=== PATIENT | female | born 1980 | race Caucasian/White ===

== ENCOUNTER 2019-01-11 17:17 | Emergency (ER) | payer BC ==
[~2019-01-11] VITALS: Ht 172.7 cm; Wt 90.0 kg
[~2019-01-11 17:17] MED LIST: DIVA500T9 PO; ESTR1PAT80 TOP; LURA60TA2 PO; SERT25TA5 PO
[2019-01-11] MEDS ORDERED: LORazepam 2 mg/ml vial IM ONE (17:45)
[2019-01-11] MEDS ORDERED: diphenhydrAMINE 50 mg/ml inj IM ONE (17:45)
[2019-01-11] MEDS ORDERED: haloperidol lactate 5mg/ml inj IM ONE (17:45)
--- NOTE | 2019-01-11 17:58 | NUR ---
obtained verbal order for hard restraint.patient uncooperative and combative.Unable to redirect.
[2019-01-11 18:55] LABS: BASOPHILS % (AUTO) 0.3 % (0-1); EOSINOPHILS % (AUTO) 0.2 % (0-6); HEMATOCRIT 41.6 % (35.0-45.0); HEMOGLOBIN 14.4 g/dl (12.0-16.0); LYMPHOCYTES % (AUTO) 11.2 % (21-51); MEAN CORPUSCULAR HEMOGLOBIN 30.4 PG (27.0-31.0); MEAN CORPUSCULAR HGB CONC 34.6 g/dL (33.0-36.5); MEAN CORPUSCULAR VOLUME 87.7 FL (78-98); MEAN PLATELET VOLUME 8.8 FL (7.4-10.4); MONOCYTES # (AUTO) 0.4 X10'3 (0-0.9); MONOCYTES % (AUTO) 4.1 % (2-12); NEUTROPHILS # (AUTO) 7.8 X10'3 (1.8-7.7); NEUTROPHILS % (AUTO) 84.2 % (42-75); PLATELET COUNT 161 X10'3 (140-440); RED BLOOD COUNT 4.75 X10'6 (4.20-5.60); RED CELL DISTRIBUTION WIDTH 14.7 % (11.5-14.5); WHITE BLOOD COUNT 9.3 X10'3 (4.5-11.0)
[2019-01-11 19:08] LABS: ALANINE AMINOTRANSFERASE 18 U/L (12-78); ALBUMIN 3.6 G/DL (3.4-5.0); ALBUMIN/GLOBULIN RATIO 1.3 (1.1-1.5); ALKALINE PHOSPHATASE 68 IU/L (46-116); ANION GAP 13 (8-16); ASPARTATE AMINO TRANSFERASE 16 U/L (10-37); BILIRUBIN,TOTAL 1.1 MG/DL (0.1-1.0); BLOOD UREA NITROGEN 13 MG/DL (7-18); BUN/CREATININE RATIO 13.5 (6.6-38.0); CALCIUM 8.5 MG/DL (8.5-10.1); CHLORIDE 103 MMOL/L (99-107); CREATININE 0.96 MG/DL (0.40-0.90); GLUCOSE 209 MG/DL (70-104); SODIUM 137 MMOL/L (135-145); TOTAL CARBON DIOXIDE 21.1 MMOL/L (24-32); TOTAL PROTEIN 6.3 G/DL (6.4-8.2); eGFR 64 ML/MIN
[2019-01-11 19:12] LABS: ETHANOL < 0.010 GM/DL (0.0-0.010); POTASSIUM 2.7 MMOL/L (3.5-5.1)
[2019-01-11] MEDS ORDERED: potassium Cl 20 mEq SR tablet PO PRN ×2 (19:15)
[2019-01-11 20:04] LABS: CLARITY,URINE CLEAR (Clear); COLOR,URINE YELLOW (Yellow); GLUCOSE, URINE NEGATIVE (Neg); KETONES,URINE 15 mg/dl (Neg); LEUKOCYTE ESTERASE ,URINE NEGATIVE (Neg); NITRITES, URINE NEGATIVE (Neg); OCCULT BLOOD,URINE NEGATIVE (Neg); PROTEIN,URINE NEGATIVE (Neg); URINE HCG NEGATIVE (NEG); UROBILINOGEN,URINE 0.2 E.U/dL (0.2-1.0)
[2019-01-11 20:06] LABS: UA COLLECTION TYPE CLN CATCH MIDSTREAM
[2019-01-11 20:21] LABS: URINE AMPHETAMINE SCREEN NEGATIVE (Neg); URINE BARBITUATE SCREEN NEGATIVE (Neg); URINE BENZODIAZEPINES SCREEN NEGATIVE (Neg); URINE CANNABINOID SCREEN NEGATIVE (Neg); URINE COCAINE SCREEN NEGATIVE (Neg); URINE METHADONE SCREEN NEGATIVE (Neg); URINE OPIATE SCREEN NEGATIVE (Neg); URINE PHENCYCLIDINE SCREEN NEGATIVE (Neg)
--- NOTE | 2019-01-11 21:21 | NUR ---
Pt. resting quietly, on monitor Pt. sinus tach 110 - 130, no ectopy. Dr. Victoria aware.
[2019-01-11] MEDS ORDERED: PROG25PO TOP (22:15)
[2019-01-11 22:50] VITALS: BP 128/78
[2019-01-12] MEDS ORDERED: K and/or MAG REPLACEMENT MC SCH (08:00)
== END 2019-01-11 22:51 | disposition home or self-care (01) ==
LOC: ER 17:19
DX: F29 Unspecified psychosis not due to a substance or known physiological condition (principal); E87.6 Hypokalemia; E78.00 Pure hypercholesterolemia, unspecified; R45.1 Restlessness and agitation; F41.9 Anxiety disorder, unspecified; Z79.899 Other long term (current) drug therapy; Z98.890 Other specified postprocedural states
CPT/HCPCS: 36415; 80053; 80305; 80320; 81003; 81025; 85025; 96372; 99284; J1200; J1630; J2060

== ENCOUNTER 2019-01-12 14:27 | Emergency (ER) | payer BC ==
[~2019-01-12] VITALS: Ht 162.6 cm; Wt 80.0 kg
[~2019-01-12 14:27] MED LIST changes: -DIVA500T9 PO; -ESTR1PAT80 TOP; -LURA60TA2 PO; +PROG25PO TOP; -SERT25TA5 PO
[2019-01-12] MEDS ORDERED: haloperidol lactate 5mg/ml inj IM ONE (15:00)
[2019-01-12] MEDS ORDERED: diphenhydrAMINE 50 mg/ml inj IM ONE (15:00)
[2019-01-12] MEDS ORDERED: LORazepam 2 mg/ml vial IM ONE (15:00)
--- NOTE | 2019-01-12 15:20 | NUR ---
Per report from intake patient has been off her medications for schizophrenia for 6 months and is now experiencing confusion and is danger to herself and to others in her family. She was seen and treated yesterday requiring physical and chemical restraints, was ultimately discharged home. Family has now brought her back for further treatment. Pt presents as delusional and unable to care for herself. Also has a young son. is at bedside and was able to convince her to take im injections as ordered. Placed on 1798 by to be evaluated for inpatient treatment. Labs drawn. States has been to [facility] in the past and was helpful. Addendum: 01/12/19 at 1553 by FSTURR *pt has Bipolar disorder per painter and grader cork and chart documentation/family report not schizophrenia.
[2019-01-12 15:27] LABS: BASOPHILS % (AUTO) 0.2 % (0-1); EOSINOPHILS % (AUTO) 0.1 % (0-6); HEMATOCRIT 43.2 % (35.0-45.0); HEMOGLOBIN 14.9 g/dl (12.0-16.0); LYMPHOCYTES # (AUTO) 1.1 X10'3 (1.1-4.8); MEAN CORPUSCULAR HEMOGLOBIN 29.8 PG (27.0-31.0); MEAN CORPUSCULAR HGB CONC 34.4 g/dL (33.0-36.5); MEAN CORPUSCULAR VOLUME 86.7 FL (78-98); MEAN PLATELET VOLUME 8.8 FL (7.4-10.4); MONOCYTES # (AUTO) 0.7 X10'3 (0-0.9); MONOCYTES % (AUTO) 5.9 % (2-12); NEUTROPHILS # (AUTO) 10.4 X10'3 (1.8-7.7); NEUTROPHILS % (AUTO) 84.8 % (42-75); PLATELET COUNT 203 X10'3 (140-440); RED BLOOD COUNT 4.99 X10'6 (4.20-5.60); RED CELL DISTRIBUTION WIDTH 14.9 % (11.5-14.5); WHITE BLOOD COUNT 12.3 X10'3 (4.5-11.0)
--- NOTE | 2019-01-12 15:31 | NUR ---
Elopement wrist band #23 placed on patient.
[2019-01-12 15:35] LABS: ALANINE AMINOTRANSFERASE 22 U/L (12-78); ALBUMIN 3.7 G/DL (3.4-5.0); ALBUMIN/GLOBULIN RATIO 1.2 (1.1-1.5); ALKALINE PHOSPHATASE 69 IU/L (46-116); ANION GAP 10 (8-16); ASPARTATE AMINO TRANSFERASE 42 U/L (10-37); BILIRUBIN,TOTAL 1.4 MG/DL (0.1-1.0); BLOOD UREA NITROGEN 10 MG/DL (7-18); BUN/CREATININE RATIO 13.9 (6.6-38.0); CALCIUM 8.7 MG/DL (8.5-10.1); CHLORIDE 107 MMOL/L (99-107); CREATININE 0.72 MG/DL (0.40-0.90); ETHANOL < 0.010 GM/DL (0.0-0.010); GLUCOSE 122 MG/DL (70-104); POTASSIUM 3.5 MMOL/L (3.5-5.1); SODIUM 140 MMOL/L (135-145); TOTAL CARBON DIOXIDE 23.1 MMOL/L (24-32); TOTAL PROTEIN 6.9 G/DL (6.4-8.2); eGFR 90 ML/MIN
[2019-01-12 15:56] LABS: URINE HCG NEGATIVE (NEG)
[2019-01-12 16:10] LABS: URINE AMPHETAMINE SCREEN NEGATIVE (Neg); URINE BARBITUATE SCREEN NEGATIVE (Neg); URINE BENZODIAZEPINES SCREEN NEGATIVE (Neg); URINE CANNABINOID SCREEN NEGATIVE (Neg); URINE COCAINE SCREEN NEGATIVE (Neg); URINE METHADONE SCREEN NEGATIVE (Neg); URINE OPIATE SCREEN NEGATIVE (Neg); URINE PHENCYCLIDINE SCREEN NEGATIVE (Neg)
--- NOTE | 2019-01-12 16:12 | NUR ---
Pt resting with eyes closed, appears comfortable. Family at bedside.
--- NOTE | 2019-01-12 16:18 | NUR ---
PACKET FAXED TO [facility] OFFICE.
--- NOTE | 2019-01-12 16:52 | NUR ---
Contact info- Mother Rolanda Bradford [phone] Hom[place] [phone]
--- NOTE | 2019-01-12 18:30 | NUR ---
Received report and assumed care of patient from JYOTI Knox.
[2019-01-12] MEDS ORDERED: ziprasidone IM 20mg inj **IM only IM ONE (21:50)
[2019-01-12] MEDS ORDERED: risperiDONE 2mg tablet PO ONE (21:50)
--- NOTE | 2019-01-12 22:39 | NUR ---
The patient has fallen asleep on her right side. RR unlabored. No s/s of distress.
--- NOTE | 2019-01-13 01:28 | NUR ---
The patient is finally asleep on her right side. Resp. are unlabored. No s/s of distress.
--- NOTE | 2019-01-13 04:32 | NUR ---
The patient is awake, confused and fearful. She is fearful of something, but won't say what. PCT jose Gunderson and Ledy ROSARIO are at bedside with Client.
--- NOTE | 2019-01-13 05:40 | NUR ---
The patient is sitting on the side of her bed. She is labile with emotions and cries often with no explanation.
--- NOTE | 2019-01-13 06:29 | NUR ---
Received report and assumed care of patient from JYOTI Rogers.
[2019-01-13] MEDS ORDERED: quetiapine 100mg tablet PO ONE (06:55)
--- NOTE | 2019-01-13 08:06 | NUR ---
Assumed care of patient; Noted that General group assessment was not completed on admission. Charge nurse made aware. Patient is tearful this am despite reassurance. Patient has been paranoid and continually pacing around. MD notified with orders to administer Seroquel 100 mg which was given and effective in calming the patient thus far. Patients vital signs are stable and she offers no complaints at this time. Patient is resting comfortably. Will continue to monitor.
--- NOTE | 2019-01-13 10:17 | NUR ---
Patient is resting comfortably, awake but continues to be confused. Patient encouraged to drink fluids which she has been compliant with. Will continue to monitor.
[2019-01-13] MEDS ORDERED: OLANZapine **IM** 10 mg inj. IM ONE ×2 (10:40→14:55)
--- NOTE | 2019-01-13 10:40 | NUR ---
Patient is increasingly coming agitated and reports hearing voices. Patient is rushing toward the door and having issues managing her fears at this time. 1:1 consoling and reassurance is ineffective. MD notified with orders to give Zyprexa. Will continue effectiveness of medication.
[2019-01-13 18:07] VITALS: BP 137/105
--- NOTE | 2019-01-13 18:16 | NUR ---
Spoke with Dr. Bird regarding patients current regiman and POC with medications. MD stated he was uncomfortably prescribing more medications without her being thourghouly evaluted by the MD on behavioral health. Spoke with Kurtis Campos and he stated he would not be able to consult with her tonight but reviewed all prior medications and her sympoms of tearfulness, sensitivity to noise and auditory hallucinations despite medications given. Received new orders to implement Seroquel and that he wouldn't be able to consult with her intil the AM. He did state that if the dose is not effective, that NOC shift can call back and he will increase the dose. Notified patient and her spouse of POC. Patient is currently eating dinner and they are in agreement with POC.
--- NOTE | 2019-01-13 18:34 | NUR ---
Reported off to JYOTI Tinajero.
[2019-01-13] MEDS ORDERED: quetiapine 100mg tablet PO SCH (19:00)
--- NOTE | 2019-01-13 19:58 | NUR ---
Report received from Bre MONTES, all questions regarding care were answered.
--- NOTE | 2019-01-13 21:22 | NUR ---
Momo primary nurse is on a break. This patient is awake, crying loudly, responding to internal voices. A call is placed to Behavioral Health, ALTHEA Orozco is being paged.
[2019-01-13] MEDS ORDERED: diphenhydrAMINE 25mg capsule PO ONE (21:35)
[2019-01-13] MEDS ORDERED: haloperidol 5mg tablet PO ONE (21:35)
[2019-01-13] MEDS ORDERED: LORazepam 1 MG tablet PO ONE (21:35)
[2019-01-14] MEDS ORDERED: quetiapine 100mg tablet PO SCH ×2 (02:45→05:35)
--- NOTE | 2019-01-14 05:48 | NUR ---
This radio script writer assisted the patients primary nurse by administering seroquel to this patient. The patient is exhibiting crying, depression, poor eye contact, quiet and irregular speech. She is pacing the floor near her bed also. Calming measures are also being used. Patients primary nurse was attending to another patient.
--- NOTE | 2019-01-14 06:30 | NUR ---
Assumed patient care. Patient is resting in bed, still asleep from NOC shift.
--- NOTE | 2019-01-14 06:52 | NUR ---
Gave patient report to Mara Murray, All questions regarding care were discuseed
--- NOTE | 2019-01-14 07:30 | NUR ---
Patient up the the restroom, sitter at patients side. No issues at this time. Patient does start crying while walking, redirected tolerated well. Patient returns to bed without issues.
--- NOTE | 2019-01-14 08:00 | NUR ---
Patient with breakfast tray.
--- NOTE | 2019-01-14 10:32 | NUR ---
at bedside with patient.
--- NOTE | 2019-01-14 10:50 | NUR ---
Phone call from [employer], requesting additional information concerning patient. Information provided. Request made to report any changes if one may occur.
--- NOTE | 2019-01-14 11:23 | NUR ---
Patient ambulated to the restroom, tolerated well.
--- NOTE | 2019-01-14 12:11 | NUR ---
Breaking primary RN pt at bedside, quietly talking to her, no agitation apparent
--- NOTE | 2019-01-14 12:40 | NUR ---
at bedside. Patient resting, no issues.
--- NOTE | 2019-01-14 12:56 | NUR ---
[facility] CALLED REGARDING [facility] RESULTS, RESULTS FAXED AT [facility] REQUEST.
--- NOTE | 2019-01-14 13:11 | NUR ---
Patient accepted with [facility]. Family and patient notified.
--- NOTE | 2019-01-14 13:36 | NUR ---
Mother in to see patient. Family upset that patient is being tranfered out of town and not staying in [place] for placement.
--- NOTE | 2019-01-14 14:25 | NUR ---
Lunch relief for Primary Nurse. Pt is sitting on the bed talking with the sitter at the bedside. Pt is currently calm but tearful.
--- NOTE | 2019-01-14 15:31 | NUR ---
Patient up to the restroom independently. Tolerated well.
--- NOTE | 2019-01-14 15:32 | NUR ---
[facility] transport in to transport patient to facility.
== END 2019-01-14 15:58 ==
LOC: ER 14:27
DX: F20.0 Paranoid schizophrenia (principal); F29 Unspecified psychosis not due to a substance or known physiological condition; F41.9 Anxiety disorder, unspecified; F31.9 Bipolar disorder, unspecified; Z98.890 Other specified postprocedural states; Z79.899 Other long term (current) drug therapy
CPT/HCPCS: 36415; 80053; 80305; 80320; 81025; 84443; 85025; 96372; 99285; J1200; J1630; J2060; J3486; J3490; Q0163